=== PATIENT | female | born 1930 | race Caucasian/White ===

== ENCOUNTER 2016-07-10 17:01 | Emergency (ER) | payer MEDICARE, OTHER ==
[2016-07-10 17:22] VITALS: BP 161/71
[2016-07-10] MEDS ORDERED: Ipratropium 0.5MG/2.5ML NEB* 0.5 MG/2.5 ML NEB.SOLN INH ONE (17:55)
--- NOTE | 2016-07-10 18:00 | UC ---
Respiratory Complaint HPI - HPI Summary HPI Summary: Pt is accompanied by son. Pt c/o cough, SOB, chills, and fatigue X 1 week. Has history of pneumonia and COPD. - History of Current Complaint Chief Complaint: UCRespiratory Stated Complaint: DIFFICULTY BREATHING Time Seen by Provider: 07/10/16 17:47 Hx Obtained From: Patient ?: No Onset/Duration: Gradual Onset Timing: Constant Severity Initially: Mild Severity Currently: Mild Character: Cough: Nonproductive Aggravating Factors: Deep Breaths, Recumbent Position Alleviating Factors: Nothing Associated Signs And Symptoms: Positive: Chills, URI - Risk Factors Pulmonary Embolism Risk Factors: Negative Cardiac Risk Factors: Elevated Lipids Pseudomonas Risk Factors: Chronic Lung Disease - Allergies/Home Medications Allergies/Adverse Reactions: Allergies Allergy/AdvReac Type Severity Reaction Status Date / Time Penicillins Allergy Rash Verified 07/10/16 17:10 Prednisone Allergy Swelling Verified 07/10/16 17:10 Pseudoephedrine Allergy rapid Verified 07/10/16 17:10 [From Sudafed] heart rate PMH/Surg Hx/FS Hx/Imm Hx Previously Healthy: Yes - extremes of age Endocrine History Of: Denies: Diabetes, Thyroid Disease Cardiovascular History Of: Denies: Cardiac Disorders, Hypertension Respiratory History Of: Reports: Asthma - Approx twice per year along w/ seasonal allergies Denies: COPD, Bronchitis GI/ History Of: Denies: Ulcer - Surgical History Surgical History: Yes Surgery Procedure, Year, and Place: left mastectomy, 2013-hemiarthoplasty left hip. - Family History Known Family History: Positive: Cardiac Disease - Social History Alcohol Use: Rare Substance Use Type: None Smoking Status (MU): Never Smoked Tobacco - Immunization History Most Recent Influenza Vaccination: 2013 Most Recent Tetanus Shot: up to date Most Recent Pneumonia Vaccination: 2013 Review of Systems Constitutional: Chills, Fatigue Skin: Negative Eyes: Negative ENT: Other - nasal congestion Respiratory: Cough Cardiovascular: Negative Gastrointestinal: Negative Genitourinary: Negative Motor: Negative Neurovascular: Negative Musculoskeletal: Negative Neurological: Negative Psychological: Negative All Other Systems Reviewed And Are Negative: Yes Physical Exam Triage Information Reviewed: Yes Appearance: Well-Appearing, Thin, Other: - pale skin Vital Signs: Initial Vital Signs Temp 99.1 F 07/10/16 17:14 Pulse 82 07/10/16 17:14 Resp 18 07/10/16 17:14 BP 161/71 07/10/16 17:14 Pulse Ox 93 07/10/16 17:14 Vital Signs Reviewed: Yes ENT: Positive: Nasal congestion Neck exam: Normal Respiratory: Positive: Decreased breath sounds - bilateral bases, Other: - cough with inspriation Cardiovascular: Positive: Murmur:Sys:Grade _?_/ Abdominal Exam: Normal Musculoskeletal Exam: Normal Neurological Exam: Normal Neurological: Positive: Other: - hard of hearing Psychological Exam: Normal Skin Exam: Normal UC Diagnostic Evaluation - Laboratory O2 Sat by Pulse Oximetry: 93 Respiratory Course/Dx - Course Course Of Treatment: chest Xray. IMPRESSION: SMALL BIBASILAR INFILTRATES SUGGESTIVE OF PNEUMONIA. - Differential Dx/Diagnosis Differential Diagnosis/HQI/PQRI: Bronchitis, Exacerbation Of COPD, Other - pneumonia Provider Diagnoses: pneumonia Discharge - Discharge Plan Condition: Stable Disposition: HOME Prescriptions: Azithromycin TAB* [Zithromax TAB (Z-THOMAS) 250 mg #6 tabs] 2 tab PO .TODAY, THEN 1 DAILY #1 thomas Patient Education Materials: Pneumonia (ED) Referrals: Wili Herrera MD [Primary Care Provider] -
--- NOTE | 2016-07-10 19:25 | RAD ---
INDICATION: Cough and shortness of breath. COMPARISON: Comparison is made with a prior study from September 18, 2015. TECHNIQUE: Dual-energy PA and lateral views of the chest were obtained. FINDINGS: The heart appears mildly enlarged and unchanged from the prior exam. There are small patchy infiltrates at both lung bases suspicious for pneumonia. No pleural effusion is seen. IMPRESSION: SMALL BIBASILAR INFILTRATES SUGGESTIVE OF PNEUMONIA.
[2016-07-10] MEDS ORDERED: Azithromycin TAB* 250 MG PO ONE (19:29)
== END 2016-07-10 19:33 | disposition home or self-care (01) ==
LOC: UCEAST 17:01
DX: J18.9 Pneumonia, unspecified organism (principal); Z88.0 Allergy status to penicillin; Z88.8 Allergy status to other drugs, medicaments and biological substances
CPT/HCPCS: 71020; 93005; 99212; A9270-GY; G0463; J7644